=== PATIENT | male | born 1995 | race African-American/Black ===

== ENCOUNTER → 2021-03-12 | Day surgery (SDC) | payer OTHER ==
[~2021-03-12] VITALS: Ht 180.3 cm; Wt 100.2 kg
[~2021-03-12] MED LIST: LIDOCAINE 2% 100MG/5ML SDV (FOR ANES.) As Ordered ONE; MECL-86 PO; NS 1,000 ML IV ONE; PANT40TA29 PO; [UNRECOGNIZED DRUG - CODE] PO; fentaNYL 100 MCG/2 ML INJECTION (J3010) As Ordered ONE; propofoL 200 MG/20 ML VIAL As Ordered ONE
--- NOTE | 2021-03-12 15:09 | ROOR ---
Patient Name: Saad Blue Procedure Date: 03/12/2021 2:50 PM Date of : 1995 Age: 26 Room: [facility] Gender: Male Note Status: Finalized Procedure: Upper GI endoscopy Indications: Esophageal reflux symptoms that persist despite appropriate therapy, Esophageal reflux symptoms that recur despite appropriate therapy Providers: Parth Echavarria MD Referring MD: ESTEPHANIA CAMPBELL MD Requesting Provider: Medicines: Monitored Anesthesia Care Complications: No immediate complications. Procedure: Pre-Anesthesia Assessment: - The heart rate, respiratory rate, oxygen saturations, blood pressure, adequacy of pulmonary ventilation, and response to care were monitored throughout the procedure. The Endoscope was introduced through the mouth, and advanced to the second part of duodenum. The upper GI endoscopy was accomplished without difficulty. The patient tolerated the procedure well. Findings: The esophagus was normal. The stomach was normal. The examined duodenum was normal. Biopsies were taken with a cold forceps in the gastric antrum for Helicobacter pylori testing. Biopsies were taken with a cold forceps in the upper third of the esophagus and in the middle third of the esophagus for histology. Impression: - Normal esophagus. Biopsied. - Normal stomach. Biopsied. - Normal examined duodenum. Recommendation: - Continue present medications. - Use Gaviscon PO as directed. - (the script was sent to your pharmacy on file) Procedure Code(s): --- Professional --- 92764, Esophagogastroduodenoscopy, flexible, transoral; with biopsy, single or multiple Diagnosis Code(s): --- Professional --- K21.9, Gastro-esophageal reflux disease without esophagitis CPT copyright 2019 [employer]. All rights reserved. The codes documented in this report are preliminary and upon fish icer review may be revised to meet current compliance requirements. Parth Echavarria MD Parth Echavarria MD 03/12/2021 3:08:51 PM Electronically signed by Parth Echavarria MD Number of Addenda: 0 Note Initiated On: 03/12/2021 2:50 PM Estimated Blood Loss: Estimated blood loss: none.
[2021-03-12 15:38] VITALS: BP 124/72
== END | disposition home or self-care (01) ==
LOC: M OPP 12:41
PROVIDERS: ATTEND Internal Medicine Gastroenterology
DX: K21.9 Gastro-esophageal reflux disease without esophagitis (principal); R12 Heartburn; Z79.899 Other long term (current) drug therapy; Z91.018 Allergy to other foods
CPT/HCPCS: 43239; 88305; J3010